=== PATIENT | male | born 1965 | race Caucasian/White ===

== ENCOUNTER → 2023-06-06 17:56 | Outpatient (REF) | payer OTHER, SELFPAY | LOC: MRI 17:56 | PROVIDERS: ATTENDING PHYSICIAN Podiatrist Foot Surgery | DX: M76.822 Posterior tibial tendinitis, left leg (principal); S99.919A Unspecified injury of unspecified ankle, initial encounter | CPT/HCPCS: 73721 ==

== ENCOUNTER 2023-08-06 19:54 | Emergency (ER) | payer OTHER, SELFPAY ==
[2023-08-06 19:59] VITALS: BP 158/107; BMI 33.9
--- NOTE | 2023-08-06 21:29 | ED.GENMED ---
History of Present Illness
General
Chief Complaint: Head Injury
Time Seen by Provider: 08/06/23 21:05
Travel History
Have you had any contact with someone who has COVID-19?: No
Do you have any symptoms of coronavirus? Fever > 100 degrees, chills, cough, shortness of breath, sore throat, loss of taste or smell, muscle aches, or headache?: No
History of Present Illness
History of Present Illness:
58-year-old male presents the emergency department for evaluation of left-sided facial pain, states he was working underneath his sink installing a garbage disposal when the garbage disposal fell onto the left side of his face just anterior to the
left ear. He reports discomfort when opening and closing the jaw. Denies any dizziness, vision changes, or lightheadedness. Does not take any anticoagulants. No hearing loss.
Past History
Past History
ED Past Medical History: HTN and Hypercholesterolemia
ED Past Surgical History: Orthopedic
Social History
Tobacco: Former smoker
Alcohol: Occasional
Drug: None
Personal:
Living: with family
Review of Systems
Review of Systems
Allergies reviewed?: Yes
All Other Systems: ROS reviewed and negative except as documented in HPI and ROS
Phy Exam
Physical Exam
Physical Exam:
GEN: Well appearing, NAD, WDWN
HEENT: Oral mucosa moist, no scleral icterus. No obvious ecchymosis or hematoma to the left temporal scalp at the site of reported injury. Temporomandibular joint range of motion normal bilaterally, negative tongue depressor test. No hemotympanum
bilaterally
Cardiac: Regular rate
Lung: No respiratory distress, no tachypnea
MSK: No gross deformity or injuries
Skin: Good color, no pallor or jaundice, no rashes
Neuro: AO x3, moves all extremities freely
Psych: Calm, cooperative
Course
Vital Signs
Initial and Last Documented VS:
Initial Vital Signs
Pulse Resp BP Pulse Ox
90 16 158/107 97
08/06/23 19:59 08/06/23 19:59 08/06/23 19:59 08/06/23 19:59
Last Documented Vital Signs
Pulse Resp BP Pulse Ox
90 16 158/107 97
08/06/23 19:59 08/06/23 19:59 08/06/23 19:59 08/06/23 19:59
MDM/Problems Addressed
MDM/Problems Addressed:
No focal signs of direct trauma to the skull. The height of the fall of the garbage disposal was less than 1 foot this not concerning for high mechanism of injury. Patient reassured, no clinical concern for major head injury
*Critical Care Note
Total Time (30-74mins, 75-104mins- exclusive of procedures): Not Applicable
ED Attending Note
-
Portions of this chart may have been created with voice recognition software.� Occasional wrong word or��sound alike� substitutions may have occurred due to the inherent limitations of voice recognition software.
Discharge Plan
Departure
Patient Disposition: Home (Routine Discharge)
Date of Disposition: 08/06/23
Time of Disposition: 21:29
Patient with high blood pressure during this ER visit?: No
Discharge Problem:
Contusion of face
Instructions: Head Injury in Adults (DC)
Prescriptions:
No Action
albuterol sulfate [Proventil HFA] 90 MCG/PUFF HFA aerosol inhaler
1 puff inhalation Q4HPRN PRN (Reason: shortness of breath) Qty: 1 0RF
prednisone 10 MG tablet
10 mg PO .TAPER Qty: 30 0RF
Rx Instructions:
Take 40mg daily x3days, 30mg daily x3days,
20mg daily x3days, 10mg daily x3days.
Activity Restrictions/Additional Instructions:
At this time you have no signs or symptoms concerning for significant intracranial injury. I recommend icing the area and taking Tylenol or ibuprofen as needed for discomfort, return to the emergency department if you develop a severe headache or
vomiting
Interventions
Interventions:
*Risk Screen - Suicide Last Done: 08/06/23 19:59
*Neglect/Abuse Screening Last Done: 08/06/23 19:59
ED- Fall Risk Assessment Last Done: 08/06/23 19:59
*Nursing Disposition Last Done: 08/06/23 21:40
ED- Neurological Assessment Last Done: 08/06/23 21:31
Discharge Date and Time
Discharge Date/Time: 08/06/23 21:40
Print Language: TURKISH
== END 2023-08-06 21:40 | disposition home or self-care (01) ==
LOC: EMR 19:54
PROVIDERS: EMERGENCY PHYSICIAN Emergency Medicine
DX: S00.83XA Contusion of other part of head, initial encounter (principal); W19.XXXA Unspecified fall, initial encounter; Z87.891 Personal history of nicotine dependence
CPT/HCPCS: 99283

== ENCOUNTER 2023-08-10 08:46 | Emergency (ER) | payer OTHER, SELFPAY ==
[2023-08-10 08:50] VITALS: BP 176/94
--- NOTE | 2023-08-10 08:53 | ED.GENMED ---
History of Present Illness
General
Chief Complaint: Headache
Time Seen by Provider: 08/10/23 08:53
Travel History
Have you had any contact with someone who has COVID-19?: No
Do you have any symptoms of coronavirus? Fever > 100 degrees, chills, cough, shortness of breath, sore throat, loss of taste or smell, muscle aches, or headache?: No
History of Present Illness
History of Present Illness:
HPI: Patient presents with left sided headache onset yesterday. This is associated w/ dizziness when stands intermittently since yesterday. Pain radiates to the neck. Of note, he was seen here 4 days ago�at that time he was felt to have a facial
contusion after an injury in which a garbage disposer fell onto the area anterior to the left ear while working under sink. No longer has nausea. He has some ongoing pain near the left TMJ and anterior/superior to the left ear. He also tells me
that he feels like he is 'in a fog'.
EXAM:
GENERAL: Well appearing in no distress
CERVICAL SPINE: No midline c-spine tenderness with excellent AROM
HEAD: No obvious evidence of craniofacial trauma however there is suggestion of soft tissue swelling superior and anterior to the left ear along with some vague discomfort with palpation of the left TMJ
CHEST: No chest wall tenderness, normal heart sounds
LUNGS: Equal lung sounds, no respiratory distress
ABDOMEN: No abdominal tenderness, no peritoneal signs
EXTREMITIES: Normal active range of motion, no tenderness
NEURO: Excellent strength all extremities, appropriate mental status, normal speech/language
TIME OF INITIAL ENCOUNTER: 8:55 AM
NUMBER AND COMPLEXITY OF PROBLEMS ADDRESSED AT THE ENCOUNTER
� Chronic conditions affecting care: Hyperlipidemia
� Acute Exacerbation and/or Progression of Chronic Illness: This is an acute problem
� Differential Diagnosis includes: Minor head injury, concussion, intracranial hemorrhage
AMOUNT AND/OR COMPLEXITY OF DATA TO BE REVIEWED AND ANALYZED
� I performed an independent evaluation of and my interpretation is:
EKG:
CT: I personally viewed CT imaging of the brain�no acute intracranial abnormality noted.
X-rays:
Laboratory Studies:
Other:
� Review of other/old records: I reviewed the ED notes from 4 days ago
� Clinical information was obtained by an independent historian: I spoke to the at bedside
� Prescriptions/Medications Considered but not given:
� Further testing considered but not performed:
RISK OF COMPLICATIONS AND/OR MORBIDITY OR MORTALITY OF PATIENT MANAGEMENT
� Social determinants of health affecting care: Lives at home
� Discussion with other providers:
� Escalation of care including admission/observation vs risk of discharge considered: Given patient's ongoing headache after head injury, will obtain CT imaging of the brain�this was negative. On reassessment at 10:27 AM, the
patient is well-appearing. We talked about likelihood of concussion I recommended rest.
Past History
Past History
ED Past Medical History: HTN and Hypercholesterolemia
ED Past Surgical History: Orthopedic
Social History
Tobacco: Former smoker
Alcohol: Occasional
Drug: None
Personal:
Living: with family
Phy Exam
Physical Exam
Physical Exam:
See HPI
Course
Orders/Labs/Results
Orders:
Orders
08/10/23 09:07
CT Head W/o Iv Contrast Urgent
Comment:
Reason For Exam: head trauma L side 4d ago; worsening M[place]OR
Vital Signs
Initial and Last Documented VS:
Initial Vital Signs
Temp Pulse Resp BP Pulse Ox
97.7 F 79 18 176/94 99
08/10/23 08:50 08/10/23 08:50 08/10/23 08:50 08/10/23 08:50 08/10/23 08:50
Last Documented Vital Signs
Temp Pulse Resp BP Pulse Ox
97.7 F 79 18 176/94 99
08/10/23 08:50 08/10/23 08:50 08/10/23 08:50 08/10/23 08:50 08/10/23 08:50
*Critical Care Note
Total Time (30-74mins, 75-104mins- exclusive of procedures): Not Applicable
ED Attending Note
-
Portions of this chart may have been created with voice recognition software.� Occasional wrong word or��sound alike� substitutions may have occurred due to the inherent limitations of voice recognition software.
Discharge Plan
Departure
Patient Disposition: Home (Routine Discharge)
Date of Disposition: 08/10/23
Time of Disposition: 10:26
Patient with high blood pressure during this ER visit?: Yes
Discharge Problem:
Concussion
Instructions: Concussion, Adult ED
Prescriptions:
No Action
albuterol sulfate [Proventil HFA] 90 MCG/PUFF HFA aerosol inhaler
1 puff inhalation Q4HPRN PRN (Reason: shortness of breath) Qty: 1 0RF
prednisone 10 MG tablet
10 mg PO .TAPER Qty: 30 0RF
Rx Instructions:
Take 40mg daily x3days, 30mg daily x3days,
20mg daily x3days, 10mg daily x3days.
Referrals:
NONE,* [Family Provider] -
Activity Restrictions/Additional Instructions:
CAT scan of the brain shows no bleeding in the brain. I suspect that your symptoms are related to a concussion. Return here if worse. Continue Tylenol for pain.
Interventions
Interventions:
*Risk Screen - Suicide Last Done: 08/10/23 08:50
*Neglect/Abuse Screening Last Done: 08/10/23 08:50
*ED COVID-19 Vaccine History Last Done: 08/10/23 08:50
Discharge Date and Time
Print Language: BENGALI
== END 2023-08-10 10:45 | disposition home or self-care (01) ==
LOC: EMR 08:46
PROVIDERS: EMERGENCY PHYSICIAN Emergency Medicine
DX: S06.0XAA Concussion with loss of consciousness status unknown, initial encounter (principal); W22.8XXA Striking against or struck by other objects, initial encounter; I10 Essential (primary) hypertension; Z87.891 Personal history of nicotine dependence
CPT/HCPCS: 99284; 70450

== ENCOUNTER 2023-09-23 09:03 | Emergency (ER) | payer OTHER, SELFPAY ==
[2023-09-23] VITALS (8 sets, daily range): BP systolic 137–175; BP diastolic 86–109; PULSE 113–119; BMI 35.2
[2023-09-23 10:01] LABS: % Eosinophils 1.7 % (0-6); % Immature Granulocytes 0.5 % (0-0.5); % Lymphocytes 38.5 % (20.5-51.1); % Monocytes 9.1 % (1.7-9.3); % Neutrophils 49.2 % (42.2-75.2); Absolute Eosinophils 0.1 10^3/uL (0-0.7); Absolute Lymphocytes 1.6 10^3/uL (1.2-3.4); Absolute Monocytes 0.4 10^3/uL (0.1-0.6); Absolute Neutrophils 2.1 10^3/uL (1.4-6.5); Hemoglobin 15.6 g/dL (13.0-18.0); Mean Corp Hgb Conc. 36.3 g/dL (33.0-37.0); Mean Corpuscular Hgb 31.6 pg (27.0-31.0); Mean Platelet Volume 10.2 fL (7.4-10.4); Nucleated Red Blood Cells % 0 % (-); Platelet Count 184 10^3/uL (130-400); Red Blood Cell Count 4.94 10^6/uL (4.70-6.10); Red Cell Dist. Width 12.6 % (11.5-14.5); White Blood Cell Count 4.2 10^3/uL (4.8-10.8)
[2023-09-23 10:19] LABS: ALT (SGPT) 37 U/L (0-50); AST (SGOT) 32 U/L (17-59); Albumin 4.6 g/dl (3.5-5.0); Alkaline Phosphatase 71 U/L (38-126); Blood Urea Nitrogen 12 mg/dl (9-20); Calcium 9.7 mg/dl (8.4-10.2); Carbon Dioxide 25 mmol/L (22-30); Chloride 106 mmol/L (98-107); Estimated Creatinine Clearance 123 ml/min; Glucose 102 mg/dl (70-99); Potassium 4.5 mmol/L (3.5-5.1); Sodium 140 mmol/L (135-145); Total Bilirubin 0.9 mg/dl (0.2-1.3); Total Protein 7.5 g/dl (6.3-8.2); eGFR > 60.00
--- NOTE | 2023-09-23 10:32 | ED.GENMED ---
History of Present Illness
General
Chief Complaint: Dizziness
Source: patient and spouse
Exam Limitations: none
Time Seen by Provider: 09/23/23 09:23
Nursing documentation reviewed up to this point in time: agreed with
History of Present Illness
History of Present Illness:
58-year-old male with past medical history as documented presents with his for evaluation of dizziness. Patient reports onset of symptoms last night�he says he woke up to go to the bathroom and when he got up he felt room spinning sensation
which threw off his balance and he fell backwards in the bed. He says that this happens 2 additional times over the course of the night when getting up to go to the bathroom. He says that this morning he still has some mild dizziness and so he
decided come to the emergency room to be assessed. He did have minor head trauma about 6 weeks ago for which he was seen in this ER, had CT scan which was negative but was diagnosed with a concussion as he was having headaches and dizziness at that
time. He has had persistent left-sided pressure headaches intermittently since then but no headache today. He denies any change in his vision or speech. Denies any focal weakness in his extremities. Denies any numbness in his extremities. He
denies any nausea or vomiting. He does report he has had some nasal congestion and fullness in the right ear. Denies any other complaints on review of systems. Of note: Patient does admit that he had 4 drinks yesterday evening and then before bed
took 2 ibuprofen PM (ibuprofen plus diphenhydramine).
Past History
Past History
ED Past Medical History: HTN and Hypercholesterolemia
ED Past Surgical History: Orthopedic
Social History
Tobacco: Former smoker
Alcohol: Occasional
Drug: None
Personal:
Living: with family
Review of Systems
Review of Systems
All Other Systems: ROS reviewed and negative except as documented in HPI and ROS
Constitutional: Denies fever or chills
EENT: Reports other (Congestion and ear fullness)
Respiratory: Denies cough or trouble breathing
Cardiac: Denies chest pain or palpitations
ABD/GI: Denies abdominal pain, nausea or vomiting
: Denies flank pain
Musculoskeletal: Denies neck pain or back pain
Neurological: Reports dizzy and headache; Denies weakness or numbness
Phy Exam
Physical Exam
Physical Exam:
General: Awake, alert, oriented x3; no acute distress
Head: Normocephalic, atraumatic
Eyes: Conjunctiva normal, EOMI without nystagmus, pupils equal round and reactive to light bilaterally
Ears: TMs clear bilaterally
Throat: Airway intact, handling secretions
Neck: Trachea midline, supple without meningismus
Lungs: Clear to auscultation bilaterally, no wheezing, rales, rhonchi
Heart: Regular rate and rhythm, no murmurs, gallops, or rubs
Abd: Soft, non distended, nontender with no masses
Neuro: Cranial nerves intact 2 through 12, speech fluid with no dysarthria or aphasia, no limb ataxia, motor and sensory function intact and symmetric upper and lower extremities
Skin: no rash
Extremities: No edema in extremities, equal pulses in all extremities
Scores
Heart Failure Risk
Heart Failure Risk Score: Not Applicable
Heart Score for Chest Pain Patients
STEMI patient?: Not applicable
Withdrawal Assessment of Alcohol
Withdrawal Assessment Completed?: Not applicable
Course
Orders/Labs/Results
Orders:
Orders
09/23/23 09:09
EKG [Electrocardiogram (*1)] Urgent
Reason for Study: Vertigo / Dizzy
EKG- Treatment ONCE
09/23/23 09:26
Orthostatic VS- Treatment ONCE
09/23/23 09:50
Complete Blood Count/With Diff Urgent
Comprehensive Metabolic Panel Urgent
09/23/23 10:31
CT Head W/o Iv Contrast Urgent
Comment:
Reason For Exam: dizziness
09/23/23 10:32
Pt Eval And Treat Urgent
Treatment: BPPV assessment
Activity Level: Ambulate
09/23/23 10:38
0.9% Sodium Chloride 1000 ml [Nss] 1,000 ml IV BOLUS
09/23/23 12:18
Meclizine [Antivert] 25 mg PO NOW STA
09/23/23 12:23
MR Brain Without Contrast Urgent
Comment:
Reason For Exam: headaches, dizziness
Recent pill cam endoscopy?: No
Abnormal Lab Results
09/23/23
09:50
WBC 4.2 L 10^3/uL
(4.8-10.8)
MCH 31.6 H pg
(27.0-31.0)
Glucose 102 H mg/dl
(70-99)
09/23/23 09:50
09/23/23 09:50
Vital Signs
Initial and Last Documented VS:
Initial Vital Signs
Temp Pulse Resp BP Pulse Ox
36.4 C 84 18 175/109 98
09/23/23 09:04 09/23/23 09:04 09/23/23 09:04 09/23/23 09:04 09/23/23 09:04
Last Documented Vital Signs
Temp Pulse Resp BP Pulse Ox
36.4 C 71 13 172/90 96
09/23/23 09:04 09/23/23 13:00 09/23/23 13:00 09/23/23 13:00 09/23/23 13:00
MDM/Problems Addressed
Differential Diagnosis Includes:
Alcohol/medication reaction, peripheral vertigo�BPPV, M�ni�re's, lab otitis, ear effusion; central vertigo�stroke, brain mass, hemorrhage; electrolyte derangement, dehydration, orthostatic symptoms, dysrhythmia
MDM/Problems Addressed:
58-year-old male presents for evaluation of dizziness that started last night�occurred 3 times with change of position and was quite severe room spinning sensation. Has also had intermittent headaches since he was diagnosed with concussion 6 weeks
ago. He has had some congestion. Denies any other recent symptoms on review of systems. Hypertensive in triage improved by my assessment, rest of vitals normal. Physical exam as above. Will check labs including CBC and a CMP. Will check an
EKG. Check CT head. I suspect the symptoms may be related to alcohol and Benadryl taken before bed last night but there are some elements that sound like peripheral vertigo as well especially with strong positional component last night. Discussed
with PT for vestibular evaluation. Will reassess after the above.
Labs reviewed: CBC and CMP unremarkable. CT head negative for any acute pathology. Patient valuated by vestibular therapy�negative [place], no reproducible nystagmus. Clinical reassessment patient still feeling dizziness, remains
hypertensive. Certainly alcohol and Benadryl last night could have contributed to severe dizziness he should be out of his system at this point and he is still having symptoms. Discussed case with neurology given his persistent headaches and
dizziness that does not clearly have reproducible nystagmus. They recommended MR brain to rule out stroke or other serious etiology but suggest that perhaps these could be postconcussive symptoms given his recent head trauma. Will proceed with MR,
also trial some meclizine here.
MRI shows no acute intracranial abnormalities. Patient feeling bit better after treatment here. Stable for discharge, will have him follow-up with neurology for possible postconcussive symptoms. He was also given info for vestibular rehab. Can
trial short burst steroids for possible vestibular neuritis. Patient is comfortable with this plan. Spoke about return precautions all questions answered.
Acute Exacerbation and/or Progression of Chronic Illness:
Acutely hypertensive�improving without intervention, no emergent indication for antihypertensives for now
Acute Exacerbation and/or Progression of Chronic Illness: HTN
*Pulse Oximetry
Patient hypoxic: no
*EKG
Interpreted by ED Provider?: Yes
Heart Rate: 70
Rate: normal
Rhythm: sinus and PVC's
Interval: normal interval
QRS Pattern: normal QRS
Ischemia: no ischemia
*Critical Care Note
Total Time (30-74mins, 75-104mins- exclusive of procedures): Not Applicable
Data Reviewed
Review of Other/Old Records Reveals: Labs and Radiology Studies
Source: patient and records
Patient Management
Discussion with other providers: [employer] Supervisor (Discussed with neurology) and Other (Discussed with physical therapy)
ED Attending Note
-
Portions of this chart may have been created with voice recognition software.� Occasional wrong word or��sound alike� substitutions may have occurred due to the inherent limitations of voice recognition software.
Discharge Plan
Departure
Patient Disposition: Home (Routine Discharge)
Date of Disposition: 09/23/23
Time of Disposition: 15:42
Patient with high blood pressure during this ER visit?: Yes
Discharge Problem:
Vertigo, Hypertension
Instructions: Vertigo (a Type of Dizziness) (DC), BLOOD PRESSURE
Prescriptions:
New
prednisone 10 mg Tablet
See Rx Instructions .ROUTE .COMPLEX Qty: 30 0RF
Rx Instructions:
Take By Mouth:
40 mg daily x3 days, 30 mg daily x3 days,
20 mg daily x3 days, 10 mg daily x3 days.
No Action
albuterol sulfate [Proventil HFA] 90 MCG/PUFF HFA aerosol inhaler
1 puff inhalation Q4HPRN PRN (Reason: shortness of breath) Qty: 1 0RF
prednisone 10 MG tablet
10 mg PO .TAPER Qty: 30 0RF
Rx Instructions:
Take 40mg daily x3days, 30mg daily x3days,
20mg daily x3days, 10mg daily x3days.
Referrals:
Randal Garcia MD [Active] - Call in 1-3 days for appt (Neurology)
Ana Prasad DO [Family Provider] - Call in 1-3 days for appt
Activity Restrictions/Additional Instructions:
Thank you for visiting the Emergency Department at [facility].
1. Please schedule a follow up appointment as directed. Call first thing tomorrow morning to make an appointment.
2. If indicated, please take your medications as instructed and indicated on discharge paperwork.
3. If any of your symptoms do not improve, or persist, or become more severe within 6-12 hours, please return to the emergency department for further care.
4. Please return to the emergency department if you develop a headache, neck pain/stiffness, fever greater than 100.4F, chest pain, shortness of breath, persistent nausea, vomiting, slurred speech, difficulty walking, numbness/tingling, weakness,
signs of infection or any other symptoms that are worrisome to you.
Please call [phone] if you have any questions.
Interventions
Interventions:
*Risk Screen - Suicide Last Done: 09/23/23 10:04
*General Assessment Last Done: 09/23/23 09:04
*Neglect/Abuse Screening Last Done: 09/23/23 10:04
*ED COVID-19 Vaccine History Last Done: 09/23/23 09:04
ED- Neurological Assessment Last Done: 09/23/23 10:04
ED- Cardiac Assessment Last Done: 09/23/23 10:05
ED Swallowing Screen Last Done: 09/23/23 12:00
Discharge Date and Time
Print Language: SAUDI ARABIAN
[2023-09-23] MEDS: NSS 1000 IV (10:47)
[2023-09-23] MEDS: ANTIVERT 25 MG PO (12:29)
== END 2023-09-23 15:54 | disposition home or self-care (01) ==
LOC: EMR 09:03
PROVIDERS: EMERGENCY PHYSICIAN Emergency Medicine; FAMILY PHYSICIAN Family Medicine
DX: R42 Dizziness and giddiness (principal); I10 Essential (primary) hypertension; Z87.891 Personal history of nicotine dependence
CPT/HCPCS: 99285; 96360; 70450; 70551; 80053; 85025; 93005

== ENCOUNTER 2023-09-26 11:15 | Outpatient (RCR) | payer OTHER, SELFPAY | END 2023-09-26 23:59 | disposition home or self-care (01) | LOC: RPT 11:15 | PROVIDERS: ATTENDING PHYSICIAN Family Medicine | DX: R42 Dizziness and giddiness (principal); Z73.6 Limitation of activities due to disability; R51.9 Headache, unspecified; Z87.820 Personal history of traumatic brain injury | CPT/HCPCS: 97110; 97162 ==

== ENCOUNTER 2024-02-27 06:23 | Day surgery (SDC) | payer OTHER, SELFPAY ==
[2024-02-27] VITALS (10 sets, daily range): BP systolic 127–160; BP diastolic 71–104
[2024-02-27] MEDS: CELEBREX 200 MG PO (13:05)
[2024-02-27] MEDS: TYLENOL 1000 MG PO (13:05)
--- NOTE | 2024-02-27 16:23 | W.PN.UPDATE ---
Update Note
Progress Note Update
s/p left hindfoot reconstruction, triple arthrodesis, PT tendon repair and posterior column lengthening
-Strict NWB LLE
-PT/OT consult
-Ancef x 3 doses
-dressings C/D/I
-Will follow
--- NOTE | 2024-02-27 20:31 | HPS.HSE ---
Family Physician
-
Family Physician: INTERVIEWE UNKNOWN - PT NOT
Chief Complaint
-
Post arthrodesis left lower extremity
History of Present Illness
58-year-old male we are asked to see by orthopedic surgeon Dr. Flowers status post left extremity double arthrodesis. The patient is currently in PACU is still drowsy and falls asleep during exams although when awake is oriented x 3. He denies
current pain he was reminded he did have a nerve block while in the operating room. He denies any headache, chills, chest pain, palpitations, shortness breath, cough, abdominal pain, nausea, vomiting, diarrhea. He currently has a posterior OCL
splint in place to his left lower extremity with visible toes that are pink and warm. No current sensation although had nerve block in the OR we will continue to monitor along with pain control. He has past medical history of hypertension,
hyperlipidemia, obesity
Medical History
Past Medical History
Past Medical History: Reports Other
Additional Past Medical History:
HTN
HLD
Obesity
Past Surgical History: Reports Other (Left shoulder bicep front and back repair, bilateral knee cartilage repair, tonsillectomy)
Social History
Tobacco: Non-smoker
Alcohol: Occasional (Tuesday and Tuesday 2-3 mixed drinks)
Personal: (With [place]a)
Living: With Family
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
Family History
Family History: Not pertinent
Allergies / Home Medications
Allergies reflects when Allergies were last updated in [employer].
Home Medications with original date entered in [employer]
Allergy/Medication List:
Allergies
Allergy/AdvReac Type Severity Reaction Status Date / Time
Penicillins Allergy Unknown Verified 02/27/24 12:54
Home Medications
albuterol sulfate 90 mcg/actuation aerosol inhaler 1 inh inhalation PRN PRN shortness of breath 02/23/24
atorvastatin 40 mg tablet 20 mg PO DAILY 02/23/24
fenofibrate 54 mg tablet 54 mg PO DAILY 02/23/24
metoprolol succinate 25 mg tablet,extended release 24 hr 25 mg PO DAILY 02/23/24
Review of Systems
-
History Source: Patient
A 12 point ROS was completed and negative except as noted: Yes
Constitutional: Denies Fever, Fatigue or Chills
EENT: Denies Sore Throat or Runny Nose
Respiratory: Denies Cough or Trouble Breathing
Cardiac: Denies Chest Pain, Palpitations or Syncope
Abdomen/GI: Denies Abdominal Pain, Nausea, Vomiting, Diarrhea, Constipated, Bloody Stools or Black Stools
: Denies Dysuria, Frequency, Flank Pain, Incontinence, Difficulty Voiding or Urgency
Musculoskeletal: Reports Other (Left lower extremity posterior OCL and place toes pink unable to currently feel sensation due to nerve block); Denies Edema
Skin: Denies Itching or Rash
Neurological: Denies Dizzy, Headache or Weakness
Endocrine: Reports No Symptoms
Hematologic/Lymphatic: Reports No Symptoms
Psych: Reports Calm
Physical Exam
Vital Signs
Vital Signs
Temp Pulse Resp BP Pulse Ox
99.0 F 99 12 141/94 97
02/27/24 20:06 02/27/24 20:15 02/27/24 20:15 02/27/24 20:15 02/27/24 20:15
Physical Exam
HEENT: NormoCephalic, Anicteric, Moist mucous membranes, PERRLA, [place] Conjunctivae and No Ptosis
Respiratory: Clear; No Wheezes, Rales or Rhonchi
Cardiac: S1/S2 and Regular Rhythm; No Murmur, Rub, Gallop or Peripheral Edema (Right lower extremity)
Breast: Deferred by me
GI: Soft, Non Tender, Non Distended and Normal Bowel Sounds
Rectal: Deferred by Provider
Genito-urinary: Deferred by me
Musculoskeletal: No Clubbing, No Cyanosis, No Edema and Other (Left lower extremity posterior OCL and place toes pink unable to currently feel sensation due to nerve block)
Skin: Warm and Dry; No Rash
Neuro: AO x 3 (Still slightly drowsy postop in recovery although oriented x 3 when awake), Cranial Nerves Intact and No Sensory Deficits; No Slurred Speech, Facial Droop, Tremors or Sedated
Psych: Calm
Data Reviewed
-
Lab Data: Labs Reviewed by me
Impression/Plan
-
Impression/plan:
Observation post recovery MedSurg
#S/p left hindfoot reconstruction, triple arthrodesis, PT tendon repair and posterior column lengthening
-Patient received preop antibiotics
-Consult Dr. Flowers
-NWB to left lower extremity in a posterior splint
-Ice as needed
-Pain control, had nerve block preop, Percocet 1 tab as needed moderate pain, Dilaudid severe pain
--PT/OT consult
-Check CBC, CMP in a.m.
#HTN�benign
#PVCs
BP 149/85
Follows with [facility] cardiology
-Continue metoprolol succinate XL 25 mg daily
#HLD
-Continue atorvastatin 20 mg daily, fenofibrate 54 mg daily
#Obesity due to excess calorie consumption�BMI 36.4
-Affects all aspects of care
-Recommend weight loss
DVT prophylaxis
SCD right sided due to left leg arthrodesis
Full code
--- NOTE | 2024-02-27 20:41 | W.PN.UPDATE ---
Update Note
Progress Note Update
This note serves as an addendum to the H&P by key punch operator LEYDA Meg SEARS
HPI
58M HX HTN , HLD seen patient at PACU
- request admission by Sales Administration Manager : immediate post op left hindfoot reconstruction, triple arthrodesis, PT tendon repair and posterior column lengthening for lt flat foot reonstruction
PHX; as above
Vital Signs
Temp Pulse Resp BP Pulse Ox
99.0 F 97 15 139/91 98
02/27/24 20:06 02/27/24 20:30 02/27/24 20:30 02/27/24 20:30 02/27/24 20:30
PE
Gen: awake but slow cognitive speed s/p fentanyl
HEENT: nl speech , symmetric fac
Neck: supple
Lungs: CTA
Cor: RRR S1 s2
Abdomen: benign
CLOSET ORGANIZER: alert . NFND
MS: Lt Abena under surgical dressing
Psych: differed
Data
No labs
ASSESSMENT & PLAN
Immediate post op left hindfoot reconstruction
triple arthrodesis, PT tendon repair and posterior column lengthening
lt flat foot reconstruction
-Ancef x 3 doses
- Strict NWB LLE
- pain control per Sales Administration Manager
- PT/OT consult
- Sales Administration Manager consult
HX HTN
- c/w Metoprolol succinate
HLD
- c/w Atorvastatin and fenofibrate
Check labs in AM
DVT Px: SCD on Rt Abena
Full code
Obs MS
[2024-02-27] MEDS: SUBLIMAZE 50 MCG IV (20:47)
--- NOTE | 2024-02-27 22:00 | PTCARENOTE ---
Patient admitted from PACU, s/p L foot reconstruction surgery. Neuro checks q4h. Post op dressing intact, KYLEE bandage and open splint. Patient denies any other skin issues. Not able to complete posterior skin assessment due to pain. Pain mgmt
throughout shift. Will continue to monitor.
[2024-02-27] MEDS: PERCOCET 5/325 1 TABLET PO (23:40)
[2024-02-28] VITALS (9 sets, daily range): BP systolic 112–192; BP diastolic 75–119; PULSE 105–114; O2SAT 98; BMI 36.6
[2024-02-28] MEDS: DILAUDID 1 MG IV ×3 (01:07→21:49)
--- NOTE | 2024-02-28 04:30 | PTCARENOTE ---
Pt is aaox3, post op left hindfoot reconstruction - foot has splint and yovani wrap in place. legs elevated on pillow. pt is able to lift left leg but has no sensation from midcalf down. he is unable to wiggle toes.pt had nerve block. pt has no pain at
this time. informed patient he is NWB to LLE, and that we will wrk with getting him up in the morning. pt and podiatry will be around to evaluate him. pt tolerating fluids and cracks - advanced diet to chol lowering. pt is voiding in urinal. pt is
resting in bed w/ call yusuf in reach.
[2024-02-28] MEDS: TYLENOL 650 MG PO (07:28)
[2024-02-28] MEDS: TRICOR 48 MG PO (07:29)
[2024-02-28] MEDS: LIPITOR 20 MG PO (07:29)
[2024-02-28] MEDS: TOPROL XL 25 MG PO (07:29)
[2024-02-28] MEDS: PERCOCET 5/325 1 TABLET PO (08:14)
--- NOTE | 2024-02-28 12:07 | CM ---
CM reviewed chart, received consult for medical equipment set up/discharge planning. Patient here for [facility]. Patient seen bedside, initial assessment completed. Patient resides with his in a two story home, two steps to enter. Patient set up
first floor living prior to surgery. Patient reports his recently had hip replacement, has canes at home, knee scooter, crutches. Patient reports his son is able to help, currently out of town for work. Patient agreeable to VN referral, will
await PT/OT evaluations, patient currently non weight bearing. Patient PCP Stacy Peres, pharmacy [facility], confirms prescription coverage. CM will continue to follow for all discharge planning needs.
Plan; home with VN likely, will need transport upon discharge.
--- NOTE | 2024-02-28 12:23 | W.PN.HOSP.TC ---
Today's Communication/Plan
-
Await PT/OT
Assessment / Plan
Assessment / Plan
Physical Exam
HEENT: NormoCephalic, Anicteric, Moist mucous membranes, PERRLA, [place] Conjunctivae and No Ptosis
Respiratory: Clear; No Wheezes, Rales or Rhonchi
Cardiac: S1/S2 and Regular Rhythm; No Murmur, Rub, Gallop or Peripheral Edema (Right lower extremity)
GI: Soft, Non Tender, Non Distended and Normal Bowel Sounds
Rectal: No rectal bleeding
Genito-urinary: Deferred by me
Musculoskeletal: No Clubbing, No Cyanosis, No Edema and Other (Left lower extremity posterior OCL and place toes pink unable to currently feel sensation due to nerve block)
Skin: Warm and Dry; No Rash
Neuro: AO x 3 (Still slightly drowsy postop in recovery although oriented x 3 when awake), Cranial Nerves Intact and No Sensory Deficits; No Slurred Speech, Facial Droop, Tremors or Sedated
Psych: Calm
#S/p left hindfoot reconstruction, triple arthrodesis, PT tendon repair and posterior column lengthening
-Patient received preop antibiotics
-Consult Dr. Flowers
-NWB to left lower extremity in a posterior splint
-Ice as needed
-Pain control, had nerve block preop, Percocet 1 tab as needed moderate pain, Dilaudid severe pain
--PT/OT consulted
#HTN�benign
#PVCs
BP 149/85
Follows with [facility] cardiology
-Continue metoprolol succinate XL 25 mg daily
#HLD
-Continue atorvastatin 20 mg daily, fenofibrate 54 mg daily
#Obesity due to excess calorie consumption�BMI 36.4
-Affects all aspects of care
-Recommend weight loss
DVT prophylaxis
SCD right sided due to left leg arthrodesis
Total time spent to see the patient, examine the patient, review data and lab results, discuss treatment plan with patient, nursing care around 55 minutes
Anticipated Discharge: Within 24 hours
Subjective/Interval History
-
Date of Service: February 28, 2024
Pain in foot is better controlled with Percocet
Objective Data
-
Vital Signs:
Vital Signs
Temp Pulse Resp BP Pulse Ox
98.1 F 109 18 124/75 97
02/28/24 07:00 02/28/24 07:00 02/28/24 07:00 02/28/24 07:00 02/28/24 07:00
I&O
02/27/24 02/28/24 02/29/24
06:59 06:59 06:59
Intake Total 700 / 700
Output Total 250 / 250
Balance 450 / 450
--- NOTE | 2024-02-28 14:08 | W.PN.UPDATE ---
Update Note
Progress Note Update
Patient seen at bedside s/p left foot reconstruction
-NWB LLE
-Pain control PRN
-PT consult
-Dressings C/D/I
-Follow up 2 weeks
[2024-02-28 17:46] LABS: Blood Urea Nitrogen 16 mg/dl (9-20); Calcium 9.4 mg/dl (8.4-10.2); Carbon Dioxide 22 mmol/L (22-30); Chloride 100 mmol/L (98-107); Estimated Creatinine Clearance > 125 ml/min; Glucose 184 mg/dl (70-99); Potassium 4.3 mmol/L (3.5-5.1); Sodium 136 mmol/L (135-145); eGFR > 60.00
[2024-02-28] MEDS: LOVENOX 40 MG SC (19:19)
[2024-02-28] MEDS: MELATONIN 5 MG PO (22:22)
--- NOTE | 2024-02-29 04:06 | DOWNTIME ---
There was a [employer] Client Assembling Inspector Downtime on 02/29/2024 from 0100 to 02/29/2024 at 0350. Downtime documentation of patient's care, including medication administrations, has been reconciled in the electronic record per guidelines. Refer to the
patient's paper chart under the miscellaneous tab to see printed paper medication records and downtime forms.
[2024-02-29] MEDS: PERCOCET 5/325 1 TABLET PO ×2 (05:42→09:47)
[2024-02-29 07:00] VITALS: BP 114/74
[2024-02-29 07:21] LABS: Hematocrit 40.9 % (39.0-52.0); Hemoglobin 13.7 g/dL (13.0-18.0); Mean Corp Hgb Conc. 33.5 g/dL (33.0-37.0); Mean Corpuscular Hgb 31.7 pg (27.0-31.0); Mean Corpuscular Volume 94.7 fL (80.0-94.0); Platelet Count 204 10^3/uL (130-400); Red Blood Cell Count 4.32 10^6/uL (4.70-6.10); Red Cell Dist. Width 12.6 % (11.5-14.5); White Blood Cell Count 10.1 10^3/uL (4.8-10.8)
[2024-02-29] MEDS: TOPROL XL 25 MG PO (07:43)
[2024-02-29] MEDS: TRICOR 48 MG PO (07:43)
[2024-02-29] MEDS: LIPITOR 20 MG PO (07:44)
[2024-02-29 07:53] LABS: ALT (SGPT) 31 U/L (0-50); AST (SGOT) 22 U/L (17-59); Alkaline Phosphatase 50 U/L (38-126); Blood Urea Nitrogen 16 mg/dl (9-20); Calcium 9.1 mg/dl (8.4-10.2); Carbon Dioxide 27 mmol/L (22-30); Chloride 103 mmol/L (98-107); Estimated Creatinine Clearance > 125 ml/min; Glucose 122 mg/dl (70-99); Potassium 4.6 mmol/L (3.5-5.1); Sodium 140 mmol/L (135-145); Total Bilirubin 0.5 mg/dl (0.2-1.3); Total Protein 6.6 g/dl (6.3-8.2); eGFR > 60.00
[2024-02-29 10:35] VITALS: BP 127/106; BP 134/92; BP 138/89; PULSE 66; PULSE 83
--- NOTE | 2024-02-29 11:16 | W.DCSUMMARY ---
Discharge Summary
Discharge Data
Date of Admission: 02/27/24
Date of Discharge: 02/29/24
-
Pending Results: No
Hospital Course
58years old male who underwent elective left foot surgery by podiatry Dr. Flowers presented with drowsiness in PACU although when awake was oriented x 3. He denied headache, chills, chest pain, palpitations, shortness breath, cough, abdominal
pain, nausea, vomiting, diarrhea. Patient had left medial double arthrodesis with subtalar TN arthrodesis as well as posterior tibial tendon reconstruction with re-tubularization secondary to repair of flexor tendon and Eran gastroc recession on
02/27/24. Patient remained under observation. He did not have change in mental status. He improved and went back to baseline. Podiatry physician followed the patient. Recommended nonweightbearing on left lower extremity with continuation of
pain control and DVT prophylaxis. Patient was evaluated by physical and Occupational Therapy. Patient remained hemodynamically stable. Patient was discharged home with home care services in a stable condition.
Physical Exam
HEENT: NormoCephalic, Anicteric, Moist mucous membranes, PERRLA, [place] Conjunctivae and No Ptosis
Respiratory: Clear; No Wheezes, Rales or Rhonchi
Cardiac: S1/S2 and Regular Rhythm; No Murmur, Rub, Gallop or Peripheral Edema (Right lower extremity)
GI: Soft, Non Tender, Non Distended and Normal Bowel Sounds
Rectal: No rectal bleeding
Genito-urinary: Deferred by me
Musculoskeletal: No Clubbing, No Cyanosis, No Edema and Other (Left lower extremity : clean dressing, toes are warm with good sensation)
Skin: Warm and Dry; No Rash
Neuro: AO x 3. Cranial Nerves Intact and No Sensory Deficits; Non focal on exam. No Slurred Speech, Facial Droop, Tremors or Sedated
Psych: Calm.
Total discharge time spent to see the patient, examine the patient, review data and lab results, discuss discharge plan with patient, Ortho doctor, pillowcase maker, PT/OT nursing staff around 65 minutes
Discharge Plan
-
Patient Disposition: Home with Home Care
Discharge Diagnosis/Procedures: .Status post left hindfoot reconstruction, triple arthrodesis, PT tendon repair and posterior column lengthening by Dr Flowers on 02/26.
Your escort car driver sent pain medicine presciptions to your pharmacy.
Diet: As tolerated
Referrals:
Delon Flowers DPM [Active] - in one to two weeks
UNKNOWN - PT NOT,INTERVIEWE [Family Provider] -
Prescriptions:
New
ibuprofen 200 mg tablet
200 mg PO Q8HPRN PRN (Reason: moderate pain) Qty: 10 0RF
acetaminophen [Tylenol Extra Strength] 500 mg tablet
500 mg PO Q6H PRN (Reason: mild pain) Qty: 10 0RF
aspirin 325 mg tablet
325 mg PO DAILY Qty: 30 0RF
Continued
atorvastatin 40 mg Tablet
20 mg PO DAILY
metoprolol succinate 25 mg Tablet Extended Release 24 Hr
25 mg PO DAILY
albuterol sulfate 90 mcg/actuation Hfa Aerosol Inhaler
1 inh INHALATION PRN PRN (Reason: shortness of breath)
fenofibrate 54 mg Tablet
54 mg PO DAILY
Discharge Orders:
Discharge Patient (As Directed); Ordered 02/29/24
Ordered By: Rick Nevarez
Discharge Date and Time
Print Language: CAMEROONIAN
[2024-02-29 11:49] VITALS: BP 127/106; BP 134/92; BP 138/89
--- NOTE | 2024-02-29 13:36 | CM ---
Addendum entered by Syeda Pinzon 02/29/24 13:40:
[facility]
Original Note:
Patient seen bedside, for discharge today. PT provided rolling walker and commode, script provided to PT. Patient agreeable to referral to [facility], referral placed in [facility]. Patient will require ambulance home, unable to do steps, non weight
bearing. Patient scheduled for 3:30 ambulance transport, will be home. CM will continue to follow for all discharge planning needs.
Plan; home with [facility], equipment per PT.
[2024-02-29 13:52] VITALS: BP 115/79
[2024-02-29] MEDS: ASPIRIN 325 MG PO (14:50)
[2024-02-29 16:05] VITALS: BP 120/78
== END 2024-02-29 16:18 | disposition home health service (06) ==
LOC: SDS 06:23
PROVIDERS: ATTENDING PHYSICIAN Internal Medicine
DX: M21.072 Valgus deformity, not elsewhere classified, left ankle (principal); M76.829 Posterior tibial tendinitis, unspecified leg; M21.42 Flat foot [pes planus] (acquired), left foot; M62.462 Contracture of muscle, left lower leg; I10 Essential (primary) hypertension; I49.3 Ventricular premature depolarization; E78.5 Hyperlipidemia, unspecified; E66.812 Obesity, class 2; Z68.36 Body mass index [BMI] 36.0-36.9, adult; Z79.899 Other long term (current) drug therapy
CPT/HCPCS: 28725; 28740; 27687; 20900; 28200; 73610; 76000; 80048; 80053; 85027; 97116; 97163; 97167; 97530; 97535; C1713

== ENCOUNTER 2024-05-02 08:57 | Outpatient (RCR) | payer OTHER, SELFPAY | END 2024-05-02 23:59 | disposition home or self-care (01) | LOC: RPT 08:57 | PROVIDERS: ATTENDING PHYSICIAN Student in an Organized Health Care Education/Training Program | DX: Z47.89 Encounter for other orthopedic aftercare (principal); M79.672 Pain in left foot; M25.572 Pain in left ankle and joints of left foot; Z73.6 Limitation of activities due to disability; R26.2 Difficulty in walking, not elsewhere classified; M62.81 Muscle weakness (generalized) | CPT/HCPCS: 97110; 97140; 97162 ==

== ENCOUNTER 2024-05-31 06:17 | Outpatient (RCR) | payer OTHER, SELFPAY | END 2024-05-31 23:59 | disposition home or self-care (01) | LOC: RPT 06:17 | PROVIDERS: ATTENDING PHYSICIAN Student in an Organized Health Care Education/Training Program | DX: Z47.89 Encounter for other orthopedic aftercare (principal); M79.672 Pain in left foot; M25.572 Pain in left ankle and joints of left foot; Z73.6 Limitation of activities due to disability; R26.2 Difficulty in walking, not elsewhere classified; M62.81 Muscle weakness (generalized) | CPT/HCPCS: 97110; 97112; 97116; 97140 ==

== ENCOUNTER 2024-06-27 18:55 | Outpatient (RCR) | payer OTHER, SELFPAY | END 2024-06-27 23:59 | disposition home or self-care (01) | LOC: RPT 18:55 | PROVIDERS: ATTENDING PHYSICIAN Student in an Organized Health Care Education/Training Program | DX: M79.672 Pain in left foot (principal); Z47.89 Encounter for other orthopedic aftercare (principal); M25.572 Pain in left ankle and joints of left foot; Z73.6 Limitation of activities due to disability; R26.2 Difficulty in walking, not elsewhere classified; M62.81 Muscle weakness (generalized) | CPT/HCPCS: 97110; 97112; 97140; 97530 ==

== ENCOUNTER 2024-07-31 06:26 | Outpatient (RCR) | payer OTHER, SELFPAY | END 2024-07-31 23:59 | disposition home or self-care (01) | LOC: RPT 06:26 | PROVIDERS: ATTENDING PHYSICIAN Student in an Organized Health Care Education/Training Program | DX: Z47.89 Encounter for other orthopedic aftercare (principal); M79.672 Pain in left foot; M25.572 Pain in left ankle and joints of left foot; Z73.6 Limitation of activities due to disability; R26.2 Difficulty in walking, not elsewhere classified; M62.81 Muscle weakness (generalized) | CPT/HCPCS: 97110; 97112; 97140; 97530 ==

== ENCOUNTER 2024-08-21 07:00 | Outpatient (RCR) | payer OTHER, SELFPAY | END 2024-08-21 23:59 | disposition home or self-care (01) | LOC: RPT 07:00 | PROVIDERS: ATTENDING PHYSICIAN Student in an Organized Health Care Education/Training Program | DX: Z47.89 Encounter for other orthopedic aftercare (principal); M79.672 Pain in left foot; M25.572 Pain in left ankle and joints of left foot; Z73.6 Limitation of activities due to disability; R26.2 Difficulty in walking, not elsewhere classified; M62.81 Muscle weakness (generalized) | CPT/HCPCS: 97110; 97112; 97140 ==

== ENCOUNTER 2024-09-11 07:32 | Outpatient (RCR) | payer OTHER, SELFPAY | END 2024-09-12 14:17 | disposition home or self-care (01) | LOC: RPT 07:32 | PROVIDERS: ATTENDING PHYSICIAN Student in an Organized Health Care Education/Training Program | DX: M25.572 Pain in left ankle and joints of left foot (principal); M79.672 Pain in left foot; Z47.89 Encounter for other orthopedic aftercare; Z73.6 Limitation of activities due to disability; R26.2 Difficulty in walking, not elsewhere classified; M62.81 Muscle weakness (generalized) | CPT/HCPCS: 97110; 97140; 97530 ==